=== PATIENT | female | born 1935 | race Asian ===

== ENCOUNTER 2019-04-19 10:27 | Emergency (ER) | payer MEDICARE, OTHER ==
[2019-04-19] MEDS: TETRACAINE 0.5% 4 ML OPH RIGHT EYE (12:49)
[2019-04-19] MEDS: FLUORESCEIN STRIP RIGHT EYE (12:49)
== END 2019-04-19 15:30 | disposition home or self-care (01) ==
LOC: E/R 10:27
DX: S05.11XA Contusion of eyeball and orbital tissues, right eye, initial encounter (principal); I10 Essential (primary) hypertension; E11.9 Type 2 diabetes mellitus without complications; W18.30XA Fall on same level, unspecified, initial encounter; Y92.9 Unspecified place or not applicable
CPT/HCPCS: 70450; 70486; 72125; 99284-25